=== PATIENT | female | born 1995 | race African-American/Black ===

== ENCOUNTER 2018-04-26 02:16 | Emergency (ER) | payer OTHER ==
[2018-04-26 02:40] LABS: KETONE, URINE AUTO RFX NEGATIVE (NEGATIVE); LEUKOCYTE ESTERASE UR AUTO RFX 3+ (NEGATIVE); NITRITE, URINE AUTO RFX NEGATIVE (NEGATIVE); RBC, URINE AUTO RFX 13 /HPF (0-3); SPECIFIC GRAVITY UR AUTO RFX 1.002 (1.002-1.035); SQUAM EPITHELIAL CELL UR AURFX 1 /HPF (0-6); WBC, URINE AUTO RFX TNTC /HPF (0-3)
[2018-04-26 05:42] LABS: CONTROL LINE UCG INT CTR LINE PRESENT; URINE PREG TEST NEGATIVE (NEGATIVE)
[2018-04-26] MEDS: NITROFURANTOIN (MACROBID) 100 MG CAP PO (05:56)
== END 2018-04-26 06:03 | disposition home or self-care (01) ==
LOC: M ED 02:16
DX: N39.0 Urinary tract infection, site not specified (principal)
CPT/HCPCS: 84703

== ENCOUNTER → 2019-04-12 | Outpatient (CLI) | payer OTHER ==
[~2019-04-12] MED LIST: GOOD81CH2; MACR100C43 PO; MULTTAB20 PO
--- NOTE | 2019-04-12 20:30 | REP ---
OB ULTRASOUND/BIOPHYSICAL PROFILE: Real-time sonographic evaluation of the gravid uterus is performed. There is a single living intrauterine gestation. Estimated gestational age is reportedly 37 weeks 5 days based on LMP, [facility] 04/28/2019, and 33 weeks 6 days based on first ultrasound, [facility] 05/25/2019. Cervix is closed and measures 3.3 cm in length. heart rate 133 beats per minute. Amniotic fluid within normal limits. RUBY 9.2 within normal range of 7.4 to 24.1. Biophysical profile is 8/8. S/D ratio in the umbilical artery is 2.02 within normal range of 1.6-2.6. RI 0.50 is below normal range of 0.59-0.75. S/D ratio in the middle cerebral artery is 2.80 with resistive index 0.64. position is vertex. Placenta is anterior and grade 1 with no previa or abruption. Electronically Signed by Graham Oneil MD 04/15/2019 11:33 A
== END ==
LOC: EDBD → MERGE 12:30 → M RAD 12:30
PROVIDERS: ATTEND Nurse Practitioner Women's Health
DX: Z34.83 Encounter for supervision of other normal pregnancy, third trimester (principal); Z3A.33 33 weeks gestation of pregnancy